=== PATIENT | female | born 1950 | race African-American/Black ===

== ENCOUNTER 2017-08-19 05:56 | Inpatient (IN) | payer MEDICARE, MEDICAID ==
[~2017-08-19] VITALS: Ht 165.1 cm; Wt 76.2 kg
[2017-08-19 06:40] LABS: BASOPHILS % 0.5 % (0.0-2.0); EOSINOPHILS % 1.5 % (0.0-5.0); HEMATOCRIT. 41.7 % (36.0-48.0); HEMOGLOBIN. 13.7 g/dL (12.0-16.0); LYMPHOCYTES % 34.4 % (20.0-50.0); MEAN CORPUSCULAR HEMOGLOBIN 27.7 pg (28.0-32.0); MEAN CORPUSCULAR VOLUME 84.4 fL (81.0-99.0); MEAN PLATELET VOLUME 8.6 fl (7.4-10.4); MONOCYTES % 7.5 % (2.0-8.0); NEUTROPHILS % 56.1 % (40.0-76.0); PLATELET 281 x1000/uL (130-400); RED BLOOD CELL COUNT 4.94 mill/uL (4.2-5.4); RED CELL DISTRIBUTION WIDTH 14.3 % (11.6-14.6)
[2017-08-19 06:45] LABS: INR 1.1; PROTHROMBIN TIME 11.3 sec (9.4-11.6)
[2017-08-19 06:48] LABS: AMMONIA 36 uMol/L (<32)
[2017-08-19 06:52] LABS: CARBON DIOXIDE 29 mEq/L (21-32); CHLORIDE 103 mEq/L (98-107); ETHANOL BLOOD < 10 mg/dL
[2017-08-19 07:29] LABS: GLUCOSE URINE NEGATIVE (NEGATIVE); KETONES URINE NEGATIVE (NEGATIVE); LEUKOCYTE ESTERASE URINE 1+ (NEGATIVE); NITRITE URINE POSITIVE (NEGATIVE); OCCULT BLOOD URINE 3+ (NEGATIVE); PROTEIN URINE NEGATIVE (NEGATIVE); SPECIFIC GRAVITY URINE 1.018 (1.005-1.030); UROBILINOGEN URINE 0.2 E.U./dL (0.2-1.0)
[2017-08-19 07:33] LABS: CLARITY URINE TURBID (CLEAR); COLOR URINE PALE YELLOW (YELLOW)
[2017-08-19 07:55] LABS: *AMPHETAMINES SCREEN URINE NEGATIVE (NEGATIVE); *BARBITURATES SCREEN URINE NEGATIVE (NEGATIVE); *BENZODIAZEPINES SCREEN URINE NEGATIVE (NEGATIVE); *COCAINE SCREEN URINE NEGATIVE (NEGATIVE); CANNABINOID URINE SCREEN NEGATIVE (NEGATIVE); METHADONE URINE SCREEN NEGATIVE (NEGATIVE); OPIATES URINE SCREEN NEGATIVE (NEGATIVE); PHENCYCLIDINE URINE SCREEN NEGATIVE (NEGATIVE)
[2017-08-19] MEDS ORDERED: CEFTRIAXONE 1 G PREMIX 50 ML IV ONE (08:15)
[2017-08-19] MEDS ORDERED: ACETAMINOPHEN 650MG/20.3ML UDC GT PRN (09:30)
[2017-08-19] MEDS ORDERED: ONDANSETRON HCL 4MG/2ML VIAL IV PRN (09:30)
[2017-08-19] MEDS ORDERED: IPRATROPIUM/ALBUTEROL 0.5-3(2.5)MG/3ML NEB INH PRN (09:30)
[2017-08-19] MEDS ORDERED: DOCUSATE SODIUM 100MG CAPSULE PO PRN (09:30)
[2017-08-19] MEDS ORDERED: BACITRACIN ZINC OINT UDPKT TOP ONE (11:30)
[2017-08-19 12:03] LABS: GLUCOSE CSF 73 mg/dL (41-75)
[2017-08-19 14:00] VITALS: BP 121/72
[2017-08-19 14:30] VITALS: BP 121/72
[2017-08-19] MEDS: OMEPRAZOLE 20MG CAPSULE EXTENDED RELEASE PO SCH (14:30)
[2017-08-19] MEDS ORDERED: LACTULOSE 20G/30ML UDC PO SCH (14:30)
[2017-08-19 20:00] VITALS: BP 129/89
[2017-08-19] MEDS: NITROFURANTOIN 100MG M/M CAPSULE PO SCH (21:00)
[2017-08-20] VITALS: BP 141/85
[2017-08-20 04:00] VITALS: BP 141/91
[2017-08-20 06:27] LABS: BASOPHILS % 0.4 % (0.0-2.0); EOSINOPHILS % 0.5 % (0.0-5.0); HEMOGLOBIN. 13.4 g/dL (12.0-16.0); LYMPHOCYTES % 21.7 % (20.0-50.0); MEAN CORPUSCULAR HEMOGLOBIN 27.2 pg (28.0-32.0); MEAN CORPUSCULAR VOLUME 83.6 fL (81.0-99.0); MEAN PLATELET VOLUME 8.9 fl (7.4-10.4); MONOCYTES % 5.9 % (2.0-8.0); NEUTROPHILS % 71.5 % (40.0-76.0); PLATELET 302 x1000/uL (130-400); RED BLOOD CELL COUNT 4.91 mill/uL (4.2-5.4); RED CELL DISTRIBUTION WIDTH 14.5 % (11.6-14.6)
[2017-08-20] MEDS: OMEPRAZOLE 20MG CAPSULE EXTENDED RELEASE PO SCH (07:07)
[2017-08-20 07:43] LABS: CARBON DIOXIDE 27 mEq/L (21-32); CHLORIDE 106 mEq/L (98-107); PHOSPHORUS 2.9 mg/dL (2.5-4.9)
[2017-08-20 08:00] VITALS: BP 153/86
[2017-08-20] MEDS ORDERED: RIVA20TA PO (08:21)
[2017-08-20] MEDS ORDERED: ACET-2178 PO (08:28)
[2017-08-20] MEDS ORDERED: MEMA10TA2 PO (08:28)
[2017-08-20] MEDS ORDERED: LACT1CAP68 PO (08:28)
[2017-08-20] MEDS ORDERED: KEPP500 PO (08:28)
[2017-08-20] MEDS ORDERED: SACC250C PO (08:28)
[2017-08-20] MEDS ORDERED: PROT1PAC2 PO (08:28)
[2017-08-20] MEDS: NITROFURANTOIN 100MG M/M CAPSULE PO SCH ×2 (08:55→20:00)
[2017-08-20] MEDS: LEVETIRACETAM 500MG TABLET PO SCH ×2 (08:56→20:00)
[2017-08-20 12:00] VITALS: BP 117/66
[2017-08-20 12:03] LABS: AMMONIA 51 uMol/L (<32)
[2017-08-20 13:22] LABS: FOLIC ACID (FOLATE) SERUM > 20.00 ng/mL (>5.38); VITAMIN B12 SERUM > 2000.0 pg/mL (211-911)
[2017-08-20] MEDS ORDERED: DEXT 5%/0.45% NACL 500ML 500 ML IV SCH (15:30)
[2017-08-20 16:00] VITALS: BP 140/77
[2017-08-20] MEDS ORDERED: LACTULOSE 20G/30ML UDC PO NR (18:15)
[2017-08-20] MEDS: DEXT 5%/0.45% NACL 1000ML 1,000 ML IV SCH (19:17)
[2017-08-20 20:00] VITALS: BP 137/83
[2017-08-21] VITALS: BP 134/75
[2017-08-21 04:00] VITALS: BP 130/72
[2017-08-21] MEDS: OMEPRAZOLE 20MG CAPSULE EXTENDED RELEASE PO SCH (06:37)
[2017-08-21 07:07] LABS: BASOPHILS % 0.5 % (0.0-2.0); EOSINOPHILS % 1.5 % (0.0-5.0); HEMATOCRIT. 40.5 % (36.0-48.0); HEMOGLOBIN. 13.2 g/dL (12.0-16.0); LYMPHOCYTES % 28.7 % (20.0-50.0); MEAN CORPUSCULAR HEMOGLOBIN 27.4 pg (28.0-32.0); MEAN CORPUSCULAR VOLUME 84.4 fL (81.0-99.0); MEAN PLATELET VOLUME 8.8 fl (7.4-10.4); MONOCYTES % 6.3 % (2.0-8.0); PLATELET 278 x1000/uL (130-400); RED BLOOD CELL COUNT 4.81 mill/uL (4.2-5.4); RED CELL DISTRIBUTION WIDTH 14.4 % (11.6-14.6)
[2017-08-21 07:09] LABS: AMMONIA 33 uMol/L (<32)
[2017-08-21 07:39] LABS: CHLORIDE 106 mEq/L (98-107)
[2017-08-21 07:45] LABS: CARBON DIOXIDE 27 mEq/L (21-32)
[2017-08-21 08:00] VITALS: BP_SYST 121; BP_SYST 134; BP_DIAS 69; BP_DIAS 79
[2017-08-21] MEDS: NITROFURANTOIN 100MG M/M CAPSULE PO SCH ×2 (08:47→23:26)
[2017-08-21] MEDS: MEMANTINE HCL 10MG TABLET PO SCH (08:47)
[2017-08-21] MEDS: LEVETIRACETAM 500MG TABLET PO SCH ×2 (08:47→23:26)
[2017-08-21 12:00] VITALS: BP 134/84
[2017-08-21] MEDS: DEXT 5%/0.45% NACL 1000ML 1,000 ML IV SCH (12:45)
[2017-08-21 16:00] VITALS: BP 138/80
[2017-08-21 20:00] VITALS: BP 127/79
[2017-08-22] VITALS: BP 106/70
[2017-08-22 04:00] VITALS: BP 129/85
[2017-08-22] MEDS: OMEPRAZOLE 20MG CAPSULE EXTENDED RELEASE PO SCH (06:54)
[2017-08-22 07:42] LABS: AMMONIA 35 uMol/L (<32)
[2017-08-22 07:43] LABS: CARBON DIOXIDE 28 mEq/L (21-32); CHLORIDE 105 mEq/L (98-107)
[2017-08-22] MEDS ORDERED: DOCUSATE SODIUM SUGAR FREE 100MG/10ML UDC GT PRN (07:45)
[2017-08-22 08:00] VITALS: BP 115/65
[2017-08-22 08:10] LABS: BASOPHILS % 0.4 % (0.0-2.0); EOSINOPHILS % 2.1 % (0.0-5.0); HEMATOCRIT. 38.7 % (36.0-48.0); HEMOGLOBIN. 12.8 g/dL (12.0-16.0); LYMPHOCYTES % 27.8 % (20.0-50.0); MEAN CORPUSCULAR HEMOGLOBIN 27.8 pg (28.0-32.0); MEAN CORPUSCULAR VOLUME 84.2 fL (81.0-99.0); MONOCYTES % 7.5 % (2.0-8.0); NEUTROPHILS % 62.2 % (40.0-76.0); PLATELET 290 x1000/uL (130-400); RED CELL DISTRIBUTION WIDTH 14.4 % (11.6-14.6)
[2017-08-22] MEDS ORDERED: POTASSIUM CHLORIDE 20MEQ TABLET SR PO SCH (08:15)
[2017-08-22] MEDS ORDERED: LACTULOSE 20G/30ML UDC PO SCH (08:15)
[2017-08-22] MEDS: LANSOPRAZOLE 30MG DR CAPSULE GT SCH (09:24)
[2017-08-22] MEDS: NITROFURANTOIN 100MG M/M CAPSULE PO SCH ×2 (09:24→21:17)
[2017-08-22] MEDS: LEVETIRACETAM 500MG TABLET PO SCH ×2 (09:25→21:17)
[2017-08-22] MEDS: MEMANTINE HCL 10MG TABLET PO SCH (09:25)
[2017-08-22 12:00] VITALS: BP 142/89
[2017-08-22 14:26] LABS: HEPATITIS B SURFACE ANTIGEN NEGATIVE
[2017-08-22] MEDS ORDERED: NON FORMULARY PATIENT HOME MED EA XX SCH ×2 (14:30)
[2017-08-22 14:54] LABS: HEPATITIS B CORE AB IGM NEGATIVE
[2017-08-22 14:56] LABS: HEPATITIS A AB IGM NEGATIVE (NEGATIVE)
[2017-08-22 16:00] VITALS: BP 119/72
[2017-08-22 20:00] VITALS: BP 136/88
[2017-08-23] VITALS: BP 125/74
[2017-08-23 08:00] VITALS: BP 118/73
[2017-08-23] MEDS: LEVETIRACETAM 500MG TABLET PO SCH ×2 (10:51→21:23)
[2017-08-23] MEDS: LANSOPRAZOLE 30MG DR CAPSULE GT SCH (10:52)
[2017-08-23] MEDS: LACTOBACILLUS GG CAPSULE PO SCH (10:52)
[2017-08-23] MEDS: NITROFURANTOIN 100MG M/M CAPSULE PO SCH ×2 (10:52→21:23)
[2017-08-23] MEDS: MEMANTINE HCL 10MG TABLET PO SCH (10:52)
[2017-08-23] MEDS ORDERED: LACTULOSE 20G/30ML UDC PO PRN (11:30)
[2017-08-23 12:00] VITALS: BP 115/69
[2017-08-23 12:49] LABS: AMMONIA 30 uMol/L (<32)
[2017-08-23 13:04] LABS: BASOPHILS % 0.3 % (0.0-2.0); EOSINOPHILS % 2.9 % (0.0-5.0); HEMATOCRIT. 39.7 % (36.0-48.0); HEMOGLOBIN. 12.9 g/dL (12.0-16.0); LYMPHOCYTES % 26.8 % (20.0-50.0); MEAN CORPUSCULAR HEMOGLOBIN 27.2 pg (28.0-32.0); MEAN CORPUSCULAR VOLUME 83.5 fL (81.0-99.0); MONOCYTES % 6.5 % (2.0-8.0); NEUTROPHILS % 63.5 % (40.0-76.0); PLATELET 274 x1000/uL (130-400); RED BLOOD CELL COUNT 4.75 mill/uL (4.2-5.4); RED CELL DISTRIBUTION WIDTH 14.5 % (11.6-14.6)
[2017-08-23 13:27] LABS: CARBON DIOXIDE 28 mEq/L (21-32); CHLORIDE 107 mEq/L (98-107); PHOSPHORUS 2.2 mg/dL (2.5-4.9)
[2017-08-23 16:00] VITALS: BP 128/71
[2017-08-23] MEDS: ENOXAPARIN 40MG/0.4ML SYR SUBCUT SCH (17:47)
[2017-08-23 20:00] VITALS: BP 126/75
[2017-08-24] VITALS: BP 129/76
[2017-08-24 04:00] VITALS: BP 122/75
[2017-08-24] MEDS: LANSOPRAZOLE 30MG DR CAPSULE GT SCH (06:25)
[2017-08-24 07:15] LABS: BASOPHILS % 0.5 % (0.0-2.0); EOSINOPHILS % 3.2 % (0.0-5.0); HEMATOCRIT. 38.1 % (36.0-48.0); HEMOGLOBIN. 12.3 g/dL (12.0-16.0); LYMPHOCYTES % 35.4 % (20.0-50.0); MEAN CORPUSCULAR HEMOGLOBIN 26.9 pg (28.0-32.0); MEAN CORPUSCULAR VOLUME 83.1 fL (81.0-99.0); MEAN PLATELET VOLUME 8.8 fl (7.4-10.4); MONOCYTES % 7.1 % (2.0-8.0); NEUTROPHILS % 53.8 % (40.0-76.0); PLATELET 274 x1000/uL (130-400); RED BLOOD CELL COUNT 4.58 mill/uL (4.2-5.4); RED CELL DISTRIBUTION WIDTH 14.7 % (11.6-14.6)
[2017-08-24 07:18] LABS: AMMONIA 33 uMol/L (<32)
[2017-08-24 08:00] VITALS: BP 132/75
[2017-08-24 08:05] LABS: CARBON DIOXIDE 28 mEq/L (21-32); CHLORIDE 106 mEq/L (98-107)
[2017-08-24] MEDS: MEMANTINE HCL 10MG TABLET PO SCH (09:31)
[2017-08-24] MEDS: LEVETIRACETAM 500MG TABLET PO SCH ×2 (09:32→20:19)
[2017-08-24] MEDS: NITROFURANTOIN 100MG M/M CAPSULE PO SCH ×2 (09:32→20:19)
[2017-08-24] MEDS: LACTOBACILLUS GG CAPSULE PO SCH (09:32)
[2017-08-24 12:00] VITALS: BP 128/73
[2017-08-24] MEDS: ENOXAPARIN 40MG/0.4ML SYR SUBCUT SCH (15:40)
[2017-08-24 16:00] VITALS: BP 141/86
[2017-08-24 20:00] VITALS: BP 144/82
[2017-08-25] VITALS: BP 156/84
[2017-08-25 04:00] VITALS: BP 164/85
[2017-08-25] MEDS: LANSOPRAZOLE 30MG DR CAPSULE GT SCH (06:34)
[2017-08-25 08:00] VITALS: BP 172/82
[2017-08-25 08:44] LABS: BASOPHILS % 0.5 % (0.0-2.0); EOSINOPHILS % 2.5 % (0.0-5.0); HEMATOCRIT. 42.7 % (36.0-48.0); HEMOGLOBIN. 13.7 g/dL (12.0-16.0); LYMPHOCYTES % 28.3 % (20.0-50.0); MEAN CORPUSCULAR HEMOGLOBIN 27.1 pg (28.0-32.0); MEAN CORPUSCULAR VOLUME 84.6 fL (81.0-99.0); MEAN PLATELET VOLUME 9.2 fl (7.4-10.4); MONOCYTES % 6.3 % (2.0-8.0); NEUTROPHILS % 62.4 % (40.0-76.0); PLATELET 253 x1000/uL (130-400); RED BLOOD CELL COUNT 5.05 mill/uL (4.2-5.4)
[2017-08-25 09:31] LABS: CARBON DIOXIDE 28 mEq/L (21-32); CHLORIDE 104 mEq/L (98-107)
[2017-08-25 09:33] LABS: AMMONIA 65 uMol/L (<32)
[2017-08-25] MEDS: NITROFURANTOIN 100MG M/M CAPSULE PO SCH ×2 (09:39→20:34)
[2017-08-25] MEDS: MEMANTINE HCL 10MG TABLET PO SCH (09:39)
[2017-08-25] MEDS: LEVETIRACETAM 500MG TABLET PO SCH ×2 (09:39→20:34)
[2017-08-25] MEDS: LACTOBACILLUS GG CAPSULE PO SCH (09:39)
[2017-08-25 12:00] VITALS: BP 139/78
[2017-08-25] MEDS: ENOXAPARIN 40MG/0.4ML SYR SUBCUT SCH (15:53)
[2017-08-25 16:00] VITALS: BP 138/82
[2017-08-25 20:00] VITALS: BP 147/81
[2017-08-26] VITALS: BP 142/82
[2017-08-26 04:00] VITALS: BP 140/78
[2017-08-26] MEDS: LANSOPRAZOLE 30MG DR CAPSULE GT SCH (06:07)
[2017-08-26 06:54] LABS: CARBON DIOXIDE 28 mEq/L (21-32); CHLORIDE 104 mEq/L (98-107)
[2017-08-26 06:56] LABS: BASOPHILS % 0.3 % (0.0-2.0); EOSINOPHILS % 2.2 % (0.0-5.0); HEMOGLOBIN. 12.8 g/dL (12.0-16.0); LYMPHOCYTES % 27.8 % (20.0-50.0); MEAN CORPUSCULAR HEMOGLOBIN 27.5 pg (28.0-32.0); MEAN CORPUSCULAR VOLUME 83.6 fL (81.0-99.0); MEAN PLATELET VOLUME 9.1 fl (7.4-10.4); MONOCYTES % 5.9 % (2.0-8.0); NEUTROPHILS % 63.8 % (40.0-76.0); PLATELET 266 x1000/uL (130-400); RED BLOOD CELL COUNT 4.67 mill/uL (4.2-5.4); RED CELL DISTRIBUTION WIDTH 14.7 % (11.6-14.6)
[2017-08-26 07:42] LABS: AMMONIA 23 uMol/L (<32)
[2017-08-26 08:00] VITALS: BP 104/65
[2017-08-26] MEDS: NITROFURANTOIN 100MG M/M CAPSULE PO SCH ×2 (08:35→21:37)
[2017-08-26] MEDS: LEVETIRACETAM 500MG TABLET PO SCH ×2 (08:35→21:37)
[2017-08-26] MEDS: MEMANTINE HCL 10MG TABLET PO SCH (08:35)
[2017-08-26] MEDS: LACTOBACILLUS GG CAPSULE PO SCH (08:36)
[2017-08-26 12:00] VITALS: BP 149/80
[2017-08-26] MEDS: ENOXAPARIN 40MG/0.4ML SYR SUBCUT SCH (14:04)
[2017-08-26 16:00] VITALS: BP 117/64
[2017-08-26 20:00] VITALS: BP 134/74
[2017-08-27] VITALS: BP 127/85
[2017-08-27 04:00] VITALS: BP 128/92
[2017-08-27 06:13] LABS: BASOPHILS % 0.2 % (0.0-2.0); EOSINOPHILS % 1.7 % (0.0-5.0); HEMATOCRIT. 38.3 % (36.0-48.0); HEMOGLOBIN. 12.5 g/dL (12.0-16.0); LYMPHOCYTES % 33.2 % (20.0-50.0); MEAN CORPUSCULAR HEMOGLOBIN 27.3 pg (28.0-32.0); MEAN CORPUSCULAR VOLUME 83.7 fL (81.0-99.0); MEAN PLATELET VOLUME 9.5 fl (7.4-10.4); MONOCYTES % 7.1 % (2.0-8.0); NEUTROPHILS % 57.8 % (40.0-76.0); PLATELET 264 x1000/uL (130-400); RED BLOOD CELL COUNT 4.58 mill/uL (4.2-5.4); RED CELL DISTRIBUTION WIDTH 14.5 % (11.6-14.6)
[2017-08-27 06:26] LABS: AMMONIA 47 uMol/L (<32)
[2017-08-27] MEDS: LANSOPRAZOLE 30MG DR CAPSULE GT SCH (06:33)
[2017-08-27 06:38] LABS: CARBON DIOXIDE 30 mEq/L (21-32); CHLORIDE 103 mEq/L (98-107)
[2017-08-27 08:00] VITALS: BP 132/79
[2017-08-27] MEDS: MEMANTINE HCL 10MG TABLET PO SCH (10:20)
[2017-08-27] MEDS: LEVETIRACETAM 500MG TABLET PO SCH ×2 (10:20→21:03)
[2017-08-27] MEDS: LACTOBACILLUS GG CAPSULE PO SCH (10:21)
[2017-08-27 12:00] VITALS: BP 110/71
[2017-08-27] MEDS: LACTULOSE 20G/30ML UDC PO SCH (15:47)
[2017-08-27] MEDS: ENOXAPARIN 40MG/0.4ML SYR SUBCUT SCH (15:47)
[2017-08-27 16:00] VITALS: BP 133/72
[2017-08-27 20:00] VITALS: BP 130/69
[2017-08-28] VITALS: BP 125/77
[2017-08-28 04:00] VITALS: BP 123/77
[2017-08-28 06:52] LABS: AMMONIA 28 uMol/L (<32)
[2017-08-28] MEDS: LANSOPRAZOLE 30MG DR CAPSULE GT SCH (07:01)
[2017-08-28 08:00] VITALS: BP 121/74
[2017-08-28] MEDS: LACTOBACILLUS GG CAPSULE PO SCH (10:31)
[2017-08-28] MEDS: MEMANTINE HCL 10MG TABLET PO SCH (10:31)
[2017-08-28] MEDS: LACTULOSE 20G/30ML UDC PO SCH (10:31)
[2017-08-28] MEDS: LEVETIRACETAM 500MG TABLET PO SCH (10:31)
[2017-08-28 11:51] VITALS: BP 121/74
[2017-08-28 12:00] VITALS: BP 106/70
[2017-08-28] MEDS ORDERED: LEVOFLOXACIN 500MG PREMIX 100 ML IV SCH (13:00)
== END 2017-08-28 15:00 | disposition home or self-care (01) | DRG 871 ==
LOC: ER 05:57 → 6EST 08:50 → EDBEDREQ 08:52 → SUPCPDRO 09:05 → EDBEDREQSVC 09:45 → ENRESERV 13:33
PROVIDERS: ADMIT Family Medicine Adult Medicine; ATTEND Family Medicine Adult Medicine
DX: A41.9 Sepsis, unspecified organism (principal); G92 Toxic encephalopathy; J96.10 Chronic respiratory failure, unspecified whether with hypoxia or hypercapnia; G91.9 Hydrocephalus, unspecified; I95.9 Hypotension, unspecified; E72.20 Disorder of urea cycle metabolism, unspecified; I82.409 Acute embolism and thrombosis of unspecified deep veins of unspecified lower extremity; I48.0 Paroxysmal atrial fibrillation; G93.89 Other specified disorders of brain; E87.1 Hypo-osmolality and hyponatremia; N39.0 Urinary tract infection, site not specified; J98.11 Atelectasis; Z66 Do not resuscitate; D49.6 Neoplasm of unspecified behavior of brain; G40.909 Epilepsy, unspecified, not intractable, without status epilepticus; D64.9 Anemia, unspecified; B96.1 Klebsiella pneumoniae [K. pneumoniae] as the cause of diseases classified elsewhere; K21.9 Gastro-esophageal reflux disease without esophagitis; K76.89 Other specified diseases of liver; I48.91 Unspecified atrial fibrillation; F32.9 Major depressive disorder, single episode, unspecified; J44.9 Chronic obstructive pulmonary disease, unspecified; Z96.642 Presence of left artificial hip joint; B96.89 Other specified bacterial agents as the cause of diseases classified elsewhere; F03.90 Unspecified dementia, unspecified severity, without behavioral disturbance, psychotic disturbance, mood disturbance, and anxiety; H54.7 Unspecified visual loss; I11.9 Hypertensive heart disease without heart failure; Z98.2 Presence of cerebrospinal fluid drainage device; Z87.01 Personal history of pneumonia (recurrent); Z86.718 Personal history of other venous thrombosis and embolism; Z85.118 Personal history of other malignant neoplasm of bronchus and lung; Z86.73 Personal history of transient ischemic attack (TIA), and cerebral infarction without residual deficits; Z93.1 Gastrostomy status; Z88.0 Allergy status to penicillin; Z88.6 Allergy status to analgesic agent; Z91.041 Radiographic dye allergy status; Z91.013 Allergy to seafood
CPT/HCPCS: 36415; 70360; 70450; 70490; 70553; 71010; 71250; 74000; 76700; 80048; 80053; 80076; 80305; 81001; 82140; 82607; 82746; 82945; 83036; 83605; 83735; 84100; 84157; 84439; 84443; 84481; 85025; 85610; 86705; 86709; 86803; 87070; 87077; 87086; 87186; 87205; 87340; 89050; 92523; 93005; 93306; 93970; 96365; 96366; 97163; 97167; 99285; A6261; C1893; G0482; J0696; J1650; J1956; J3490; J7050; A4315

== ENCOUNTER → 2018-01-10 | Day surgery (SDC) | payer MEDICARE, MEDICAID ==
[~2018-01-10] MED LIST: ACET-2178 PO; KEPP500 PO; LACT1CAP68 PO; MEMA10TA2 PO; PROT1PAC2 PO; RIVA20TA PO; SACC250C PO
== END | disposition home or self-care (01) ==
LOC: CT 10:29
PROVIDERS: ATTEND Family Medicine Adult Medicine
DX: R22.1 Localized swelling, mass and lump, neck (principal)
CPT/HCPCS: 70490

== ENCOUNTER 2020-04-12 14:32 | Inpatient (IN) | payer MEDICARE, MEDICAID ==
[~2020-04-12] VITALS: Ht 167.6 cm; Wt 81.6 kg
[~2020-04-12 14:32] MED LIST changes: -ACET-2178 PO; +TOPUD PO
[2020-04-12 16:54] LABS: BASOPHILS % 0.4 % (0.0-2.0); HEMATOCRIT. 42.9 % (36.0-48.0); HEMOGLOBIN. 14.1 g/dL (12.0-16.0); LYMPHOCYTES % 34.6 % (20.0-50.0); MEAN CORPUSCULAR HEMOGLOBIN 26.5 pg (28.0-32.0); MEAN CORPUSCULAR VOLUME 80.9 fL (81.0-99.0); MEAN PLATELET VOLUME 11.1 fl (7.4-10.4); MONOCYTES % 12.3 % (2.0-8.0); NEUTROPHILS % 52.7 % (40.0-76.0); PLATELET 101 x1000/uL (130-400); RED CELL DISTRIBUTION WIDTH 15.6 % (11.6-14.6)
[2020-04-12 16:58] LABS: CHLORIDE 94 mEq/L (98-107)
[2020-04-12 17:01] LABS: CLARITY URINE CLOUDY (CLEAR); COLOR URINE YELLOW (YELLOW); KETONES URINE NEGATIVE (NEGATIVE); LEUKOCYTE ESTERASE URINE NEGATIVE (NEGATIVE); NITRITE URINE POSITIVE (NEGATIVE); OCCULT BLOOD URINE NEGATIVE (NEGATIVE); PH URINE 5.5 (4.5-8.0); PROTEIN URINE TRACE (NEGATIVE); SPECIFIC GRAVITY URINE 1.019 (1.005-1.030); UROBILINOGEN URINE 0.2 E.U./dL (0.2-1.0)
[2020-04-12 17:02] LABS: PROTHROMBIN TIME 10.4 sec (9.6-11.0)
[2020-04-12 17:04] LABS: C REACTIVE PROTEIN QUANT 6.3 mg/L (0.0-3.0)
[2020-04-12 17:07] LABS: CREATINE KINASE 54 IU/L (26-192)
[2020-04-12] MEDS ORDERED: LEVOFLOXACIN 500MG PREMIX 100 ML IV ONE (17:45)
[2020-04-12] MEDS ORDERED: SODIUM CHLORIDE 0.9% 500 ML IV ONE (17:55)
[2020-04-13] VITALS: BP_SYST 103; BP_SYST 137; BP_DIAS 74
[2020-04-13 04:00] VITALS: BP 113/82
[2020-04-13] MEDS ORDERED: LACT10SO6 PO (04:18)
[2020-04-13] MEDS ORDERED: FAMO40TA70 MT (04:19)
[2020-04-13] MEDS ORDERED: METF500S7 PO (04:20)
[2020-04-13] MEDS ORDERED: ENOX40DI8 SQ (04:21)
[2020-04-13] MEDS ORDERED: TUSSL MT (04:22)
[2020-04-13] MEDS ORDERED: DOCUSATE SODIUM 100MG CAPSULE PO PRN (05:45)
[2020-04-13] MEDS ORDERED: IPRATROPIUM/ALBUTEROL 0.5-3(2.5)MG/3ML NEB ORI PRN (05:45)
[2020-04-13] MEDS ORDERED: ONDANSETRON HCL 4MG/2ML INJ IV PRN (05:45)
[2020-04-13] MEDS ORDERED: CLONIDINE 0.1MG TABLET PO PRN (05:45)
[2020-04-13 08:00] VITALS: BP 120/71
[2020-04-13] MEDS ORDERED: ENOXAPARIN 40MG/0.4ML SYR SUBCUT SCH (09:00)
[2020-04-13 12:00] VITALS: BP 112/64
[2020-04-13] MEDS: ACETAMINOPHEN 650MG/20.3ML UDC GT PRN (12:12)
[2020-04-13] MEDS ORDERED: DEXTROSE 50% WATER 50ML SYRINGE IV PRN (12:30)
[2020-04-13] MEDS: BLOOD SUGAR DIAGNOSTIC STRIP TEST SCH ×2 (13:00→17:49)
[2020-04-13] MEDS: INSULIN LISPRO 100 UNITS/ML SUBCUT SCH ×2 (13:00→17:49)
[2020-04-13] MEDS: LEVETIRACETAM 500MG/5ML CUP PEG SCH ×2 (13:49→21:19)
[2020-04-13] MEDS: FAMOTIDINE 20MG TABLET PEG SCH (13:49)
[2020-04-13] MEDS: MEMANTINE HCL 10MG TABLET PEG SCH (13:50)
[2020-04-13] MEDS: GUAIFENESIN-DM 200MG-20MG/10ML UDC PEG SCH ×3 (13:51→21:19)
[2020-04-13 16:00] VITALS: BP 100/58
[2020-04-13] MEDS ORDERED: LEVOFLOXACIN 500MG PREMIX 100 ML IV SCH (19:00)
[2020-04-13 20:00] VITALS: BP 119/76
[2020-04-13 20:28] LABS: HEMATOCRIT 39.7 % (36.0-48.0); HEMOGLOBIN 13.3 g/dL (12.0-16.0); MEAN CORPUSCULAR HEMOGLOBIN 27.1 pg (28.0-32.0); PLATELET 95 x1000/uL (130-400); RED CELL DISTRIBUTION WIDTH 15.3 % (11.6-14.6)
[2020-04-13 20:35] LABS: CHLORIDE 95 mEq/L (98-107)
[2020-04-14] MEDS: BLOOD SUGAR DIAGNOSTIC STRIP TEST SCH ×5 (00:22→21:23)
[2020-04-14] MEDS: ACETAMINOPHEN 650MG/20.3ML UDC GT PRN ×2 (00:22→12:11)
[2020-04-14 00:24] VITALS: BP 112/66
[2020-04-14] MEDS ORDERED: VANCOMYCIN 1250MG in DEXTROSE 5% WATER 250ML IV NR (01:00)
[2020-04-14 04:00] VITALS: BP 98/60
[2020-04-14] MEDS: INSULIN LISPRO 100 UNITS/ML SUBCUT SCH ×5 (06:00→21:23)
[2020-04-14] MEDS: GUAIFENESIN-DM 200MG-20MG/10ML UDC PEG SCH ×6 (06:00→21:39)
[2020-04-14 08:00] VITALS: BP 118/72
[2020-04-14] MEDS: LEVETIRACETAM 500MG/5ML CUP PEG SCH ×2 (08:32→21:39)
[2020-04-14] MEDS: FAMOTIDINE 20MG TABLET PEG SCH (08:33)
[2020-04-14] MEDS: MEMANTINE HCL 10MG TABLET PEG SCH (08:33)
[2020-04-14] MEDS: ASCORBIC ACID 500 MG TABLET PO SCH ×2 (08:33→21:38)
[2020-04-14] MEDS: ZINC SULFATE 220 MG ( 50 ) CAPSULE PO SCH (08:33)
[2020-04-14 12:00] VITALS: BP 133/73
[2020-04-14] MEDS ORDERED: VANCOMYCIN 750 MG PREMIX 150 ML IV SCH (13:00)
[2020-04-14] MEDS ORDERED: VANCOMYCIN 1 G PREMIX 200 ML IV SCH (14:00)
[2020-04-14] MEDS ORDERED: MEROPENEM 500 MG in SODIUM CHLORIDE 0.9% 50 ML IV SCH (15:00)
[2020-04-14 16:00] VITALS: BP 100/61
[2020-04-14] MEDS: MEROPENEM 500 MG in SODIUM CHLORIDE 0.9% 50 ML IV SCH (16:29)
[2020-04-14] MEDS: ALBUTEROL 6.7GM HFA INHALER ORI SCH (17:40)
[2020-04-14 20:00] VITALS: BP 123/75
[2020-04-14] MEDS: HEPARIN 5000 UNITS/ML VIAL SUBCUT SCH (21:46)
[2020-04-15] VITALS: BP 124/82
[2020-04-15 05:15] VITALS: BP 146/59
[2020-04-15] MEDS: ACETAMINOPHEN 650MG/20.3ML UDC GT PRN (06:24)
[2020-04-15] MEDS: MEROPENEM 500 MG in SODIUM CHLORIDE 0.9% 50 ML IV SCH ×3 (06:24→17:50)
[2020-04-15] MEDS: GUAIFENESIN-DM 200MG-20MG/10ML UDC PEG SCH ×5 (06:24→21:17)
[2020-04-15] MEDS: HEPARIN 5000 UNITS/ML VIAL SUBCUT SCH ×3 (06:26→21:17)
[2020-04-15] MEDS: BLOOD SUGAR DIAGNOSTIC STRIP TEST SCH ×3 (06:46→17:52)
[2020-04-15] MEDS: ASCORBIC ACID 500 MG TABLET PO SCH ×2 (07:55→21:17)
[2020-04-15] MEDS: ZINC SULFATE 220 MG ( 50 ) CAPSULE PO SCH (07:55)
[2020-04-15] MEDS: MEMANTINE HCL 10MG TABLET PEG SCH (07:55)
[2020-04-15] MEDS: LEVETIRACETAM 500MG/5ML CUP PEG SCH ×2 (07:55→21:17)
[2020-04-15] MEDS: FAMOTIDINE 20MG TABLET PEG SCH (07:55)
[2020-04-15 12:00] VITALS: BP 110/55
[2020-04-15] MEDS: INSULIN LISPRO 100 UNITS/ML SUBCUT SCH ×2 (12:53→17:53)
[2020-04-15 16:00] VITALS: BP 120/72
[2020-04-15] MEDS: METHYLPREDNISOLONE SOD SUCC 40 MG/ML VIAL IV SCH ×2 (17:51→21:17)
[2020-04-15] MEDS: ALBUTEROL 6.7GM HFA INHALER ORI SCH (17:52)
[2020-04-15 20:00] VITALS: BP 123/72
[2020-04-16] VITALS: BP_SYST 124; BP_SYST 166; BP_DIAS 73; BP_DIAS 96
[2020-04-16] MEDS: ALBUTEROL 6.7GM HFA INHALER ORI SCH ×4 (00:50→18:00)
[2020-04-16] MEDS: BLOOD SUGAR DIAGNOSTIC STRIP TEST SCH ×4 (00:59→18:47)
[2020-04-16] MEDS: INSULIN LISPRO 100 UNITS/ML SUBCUT SCH ×4 (01:02→19:12)
[2020-04-16] MEDS: MEROPENEM 500 MG in SODIUM CHLORIDE 0.9% 50 ML IV SCH ×3 (01:03→17:56)
[2020-04-16] MEDS: GUAIFENESIN-DM 200MG-20MG/10ML UDC PEG SCH ×6 (01:03→21:18)
[2020-04-16 04:00] VITALS: BP 116/66
[2020-04-16] MEDS: HEPARIN 5000 UNITS/ML VIAL SUBCUT SCH ×3 (05:59→21:19)
[2020-04-16 08:00] VITALS: BP 95/58
[2020-04-16] MEDS: LEVETIRACETAM 500MG/5ML CUP PEG SCH ×2 (08:50→21:18)
[2020-04-16] MEDS: ASCORBIC ACID 500 MG TABLET PO SCH ×2 (08:50→21:19)
[2020-04-16] MEDS: METHYLPREDNISOLONE SOD SUCC 40 MG/ML VIAL IV SCH ×2 (08:51→21:18)
[2020-04-16] MEDS: FAMOTIDINE 20MG TABLET PEG SCH (08:51)
[2020-04-16] MEDS: MEMANTINE HCL 10MG TABLET PEG SCH (08:51)
[2020-04-16] MEDS: ZINC SULFATE 220 MG ( 50 ) CAPSULE PO SCH (08:51)
[2020-04-16 12:00] VITALS: BP 114/73
[2020-04-16 16:00] VITALS: BP 119/75
[2020-04-16 20:00] VITALS: BP 131/80
[2020-04-16 22:02] LABS: BASOPHILS % 0.2 % (0.0-2.0); HEMOGLOBIN. 12.8 g/dL (12.0-16.0); LYMPHOCYTES % 22.3 % (20.0-50.0); MEAN CORPUSCULAR HEMOGLOBIN 26.9 pg (28.0-32.0); MEAN CORPUSCULAR VOLUME 81.9 fL (81.0-99.0); NEUTROPHILS % 66.5 % (40.0-76.0); PLATELET 124 x1000/uL (130-400); RED BLOOD CELL COUNT 4.76 mill/uL (4.2-5.4); RED CELL DISTRIBUTION WIDTH 15.5 % (11.6-14.6)
[2020-04-16 22:13] LABS: CHLORIDE 100 mEq/L (98-107)
[2020-04-17] VITALS: BP 127/91
[2020-04-17] MEDS: ALBUTEROL 6.7GM HFA INHALER ORI SCH ×4 (00:12→17:07)
[2020-04-17] MEDS: BLOOD SUGAR DIAGNOSTIC STRIP TEST SCH ×4 (00:12→18:21)
[2020-04-17] MEDS: INSULIN LISPRO 100 UNITS/ML SUBCUT SCH ×4 (00:36→18:25)
[2020-04-17] MEDS: MEROPENEM 500 MG in SODIUM CHLORIDE 0.9% 50 ML IV SCH ×3 (00:36→17:07)
[2020-04-17] MEDS: GUAIFENESIN-DM 200MG-20MG/10ML UDC PEG SCH ×4 (02:42→14:02)
[2020-04-17 04:00] VITALS: BP 127/57
[2020-04-17] MEDS: HEPARIN 5000 UNITS/ML VIAL SUBCUT SCH ×3 (05:33→23:12)
[2020-04-17 08:00] VITALS: BP 125/78
[2020-04-17] MEDS: ZINC SULFATE 220 MG ( 50 ) CAPSULE PO SCH (08:03)
[2020-04-17] MEDS: MEMANTINE HCL 10MG TABLET PEG SCH (08:03)
[2020-04-17] MEDS: METHYLPREDNISOLONE SOD SUCC 40 MG/ML VIAL IV SCH ×2 (08:03→23:08)
[2020-04-17] MEDS: FAMOTIDINE 20MG TABLET PEG SCH (08:03)
[2020-04-17] MEDS: LEVETIRACETAM 500MG/5ML CUP PEG SCH ×2 (08:03→23:08)
[2020-04-17] MEDS: ASCORBIC ACID 500 MG TABLET PO SCH ×2 (08:03→23:09)
[2020-04-17 12:00] VITALS: BP 133/78
[2020-04-17 16:00] VITALS: BP 133/67
[2020-04-17 20:00] VITALS: BP 123/75
[2020-04-18] VITALS: BP 121/75
[2020-04-18] MEDS: MEROPENEM 500 MG in SODIUM CHLORIDE 0.9% 50 ML IV SCH ×3 (00:22→16:56)
[2020-04-18] MEDS: ALBUTEROL 6.7GM HFA INHALER ORI SCH ×4 (00:35→17:00)
[2020-04-18] MEDS: BLOOD SUGAR DIAGNOSTIC STRIP TEST SCH ×4 (00:36→17:00)
[2020-04-18] MEDS: INSULIN LISPRO 100 UNITS/ML SUBCUT SCH ×4 (00:38→17:25)
[2020-04-18 04:00] VITALS: BP 127/85
[2020-04-18] MEDS: HEPARIN 5000 UNITS/ML VIAL SUBCUT SCH ×2 (05:53→13:57)
[2020-04-18 08:00] VITALS: BP 132/87
[2020-04-18] MEDS: ZINC SULFATE 220 MG ( 50 ) CAPSULE PO SCH (09:33)
[2020-04-18] MEDS: FAMOTIDINE 20MG TABLET PEG SCH (09:33)
[2020-04-18] MEDS: METHYLPREDNISOLONE SOD SUCC 40 MG/ML VIAL IV SCH (09:33)
[2020-04-18] MEDS: ASCORBIC ACID 500 MG TABLET PO SCH (09:33)
[2020-04-18] MEDS: LEVETIRACETAM 500MG/5ML CUP PEG SCH (09:33)
[2020-04-18] MEDS: MEMANTINE HCL 10MG TABLET PEG SCH (09:33)
[2020-04-18 12:00] VITALS: BP 146/78
[2020-04-18 14:00] VITALS: BP 146/78
[2020-04-18 16:00] VITALS: BP 138/82
[2020-04-19] MEDS ORDERED: PREDNISONE 20MG TABLET PO SCH (09:00)
== END 2020-04-18 19:15 | DRG 871 ==
LOC: ER 14:32 → 7WST 17:33 → ENRESERV 21:45
PROVIDERS: ADMIT Internal Medicine; ATTEND Internal Medicine
DX: A41.89 Other specified sepsis (principal); U07.1 COVID-19; J96.01 Acute respiratory failure with hypoxia; J12.89 Other viral pneumonia; E44.0 Moderate protein-calorie malnutrition; E87.1 Hypo-osmolality and hyponatremia; N39.0 Urinary tract infection, site not specified; G91.9 Hydrocephalus, unspecified; Z16.12 Extended spectrum beta lactamase (ESBL) resistance; B96.89 Other specified bacterial agents as the cause of diseases classified elsewhere; D64.9 Anemia, unspecified; E87.8 Other disorders of electrolyte and fluid balance, not elsewhere classified; D69.6 Thrombocytopenia, unspecified; F03.90 Unspecified dementia, unspecified severity, without behavioral disturbance, psychotic disturbance, mood disturbance, and anxiety; G40.909 Epilepsy, unspecified, not intractable, without status epilepticus; Z66 Do not resuscitate; K21.9 Gastro-esophageal reflux disease without esophagitis; D72.819 Decreased white blood cell count, unspecified; I48.91 Unspecified atrial fibrillation; E86.1 Hypovolemia; R13.10 Dysphagia, unspecified; A41.51 Sepsis due to Escherichia coli [E. coli]; E11.9 Type 2 diabetes mellitus without complications; B97.89 Other viral agents as the cause of diseases classified elsewhere; J20.8 Acute bronchitis due to other specified organisms; B95.7 Other staphylococcus as the cause of diseases classified elsewhere; J44.9 Chronic obstructive pulmonary disease, unspecified; Z98.2 Presence of cerebrospinal fluid drainage device; Z95.828 Presence of other vascular implants and grafts; Z93.1 Gastrostomy status; Z86.718 Personal history of other venous thrombosis and embolism; Z91.041 Radiographic dye allergy status; Z88.5 Allergy status to narcotic agent; Z88.0 Allergy status to penicillin; Z91.013 Allergy to seafood; Z79.1 Long term (current) use of non-steroidal anti-inflammatories (NSAID); Z79.899 Other long term (current) drug therapy; Z68.29 Body mass index [BMI] 29.0-29.9, adult; Z79.01 Long term (current) use of anticoagulants; Z79.84 Long term (current) use of oral hypoglycemic drugs; Z87.01 Personal history of pneumonia (recurrent)
CPT/HCPCS: 36415; 71045; 80048; 80053; 81003; 82140; 82550; 82728; 82962; 83036; 83605; 83615; 83735; 83880; 84145; 84484; 85025; 85027; 86140; 87077; 87186; 93005; 93970; 99291; J1644; J1650; J1815; J1956; J2185; J2920; J3370; J7040; J7060; U0003-CS

== ENCOUNTER 2020-08-15 13:52 | Emergency (ER) | payer MEDICARE, MEDICAID ==
[~2020-08-15] VITALS: Ht 165.1 cm; Wt 61.0 kg
[~2020-08-15 13:52] MED LIST changes: +FAMO40TA70 MT; +LACT10SO6 PO; +METF500S7 PO; -RIVA20TA PO; +TUSSL MT
[2020-08-15] MEDS ORDERED: ONDANSETRON HCL 4MG/2ML INJ IV STA (14:30)
[2020-08-15] MEDS ORDERED: FAMOTIDINE 20MG/2ML VIAL IV ONE (14:45)
[2020-08-15 16:23] LABS: CHLORIDE 100 mEq/L (98-107)
[2020-08-15 16:32] LABS: BASOPHILS % 0.5 % (0.0-2.0); EOSINOPHILS % 1.4 % (0.0-5.0); HEMATOCRIT. 44.4 % (36.0-48.0); HEMOGLOBIN. 14.4 g/dL (12.0-16.0); LYMPHOCYTES % 22.7 % (20.0-50.0); MEAN CORPUSCULAR HEMOGLOBIN 27.6 pg (28.0-32.0); MEAN CORPUSCULAR VOLUME 84.7 fL (81.0-99.0); MEAN PLATELET VOLUME 11.3 fl (7.4-10.4); MONOCYTES % 6.4 % (2.0-8.0); PLATELET 184 x1000/uL (130-400); RED BLOOD CELL COUNT 5.24 mill/uL (4.2-5.4)
[2020-08-15 21:17] VITALS: BP 131/80
== END 2020-08-15 21:19 ==
LOC: ER 13:52
DX: Z43.1 Encounter for attention to gastrostomy (principal); F03.90 Unspecified dementia, unspecified severity, without behavioral disturbance, psychotic disturbance, mood disturbance, and anxiety; J44.9 Chronic obstructive pulmonary disease, unspecified; K21.9 Gastro-esophageal reflux disease without esophagitis; G40.909 Epilepsy, unspecified, not intractable, without status epilepticus; Z91.041 Radiographic dye allergy status; Z88.5 Allergy status to narcotic agent; Z88.0 Allergy status to penicillin; Z91.013 Allergy to seafood
CPT/HCPCS: 36415; 71045; 74018; 80053; 84484; 85025; 93005; 96374; 96375; 99285; J2405; J3490

== ENCOUNTER 2024-06-23 12:16 | Emergency (ER) | payer MEDICARE, MEDICAID ==
[~2024-06-23] VITALS: Ht 160 cm; Wt 74.0 kg
[~2024-06-23 12:16] MED LIST changes: -METF500S7 PO; +METF500S9 PO
[2024-06-23 12:21] VITALS: O2SAT 97
[2024-06-23 14:45] VITALS: TEMP 36.22512
[2024-06-23] MEDS: DIATR MEGLU/DIATRIZOATE SOLN 30ML ONE (15:39)
[2024-06-23] MEDS: DIATR MEGLU/DIATRIZOATE SOLN 30ML PO ONE (15:39)
[2024-06-23 17:42] VITALS: BP 143/74; PULSE 84; RESP 18; O2SAT 98
== END 2024-06-23 20:00 ==
LOC: ER 12:16
DX: Z43.1 Encounter for attention to gastrostomy (principal); J44.9 Chronic obstructive pulmonary disease, unspecified; F03.90 Unspecified dementia, unspecified severity, without behavioral disturbance, psychotic disturbance, mood disturbance, and anxiety; K21.9 Gastro-esophageal reflux disease without esophagitis; D64.9 Anemia, unspecified; Z79.899 Other long term (current) drug therapy; Z88.0 Allergy status to penicillin; Z88.5 Allergy status to narcotic agent
CPT/HCPCS: 99284; 43762; 74018; Q9963

== ENCOUNTER 2024-12-01 23:36 | Emergency (ER) | payer MEDICARE, MEDICAID ==
[~2024-12-01] VITALS: Ht 165.1 cm; Wt 74.0 kg
[~2024-12-01 23:36] MED LIST changes: +LACT-394 PO; -LACT10SO6 PO
[2024-12-01 23:50] VITALS: O2SAT 94
[2024-12-02] MEDS: LIDOCAINE HCL/EPINEPHRINE 1%-EPI 1:100,000 20ML VIAL INFIL ONE (01:04)
[2024-12-02] MEDS: DIATR MEGLU/DIATRIZOATE SOLN 30ML ONE (02:07)
[2024-12-02 03:33] VITALS: BP 130/80; PULSE 82; RESP 18; TEMP 36.7; O2SAT 97
== END 2024-12-02 03:41 ==
LOC: ER 23:36
DX: Z43.1 Encounter for attention to gastrostomy (principal); J44.9 Chronic obstructive pulmonary disease, unspecified; D64.9 Anemia, unspecified; F03.90 Unspecified dementia, unspecified severity, without behavioral disturbance, psychotic disturbance, mood disturbance, and anxiety; K21.9 Gastro-esophageal reflux disease without esophagitis; Z79.899 Other long term (current) drug therapy; Z79.84 Long term (current) use of oral hypoglycemic drugs; Z86.718 Personal history of other venous thrombosis and embolism; Z88.0 Allergy status to penicillin; Z88.5 Allergy status to narcotic agent; Z88.8 Allergy status to other drugs, medicaments and biological substances; Z91.041 Radiographic dye allergy status
CPT/HCPCS: 99284; 43762; 74018; Q9963

== ENCOUNTER 2025-10-17 14:17 | Emergency (ER) | payer MEDICARE, MEDICAID ==
[~2025-10-17] VITALS: Ht 167.6 cm; Wt 78.0 kg
[2025-10-17 14:31] VITALS: TEMP 97.8; O2SAT 95
[2025-10-17] MEDS: DIATR MEGLU/DIATRIZOATE SOLN 30ML PO ONE (15:51)
[2025-10-17] MEDS: DIATR MEGLU/DIATRIZOATE SOLN 30ML ONE (15:52)
[2025-10-17 18:27] VITALS: BP 138/74; PULSE 88; RESP 12; O2SAT 98
== END 2025-10-17 18:28 | disposition home or self-care (01) ==
LOC: ER 14:17
DX: K94.23 Gastrostomy malfunction (principal)
CPT/HCPCS: 99284; 74018; Q9963; A4615